=== PATIENT | female | born 1985 | race Hispanic/Latino ===

== ENCOUNTER 2021-12-05 16:03 | Outpatient (CLI) | payer BC | END 2021-12-05 16:04 | disposition home or self-care (01) | LOC: CSHLAB 16:03 | PROVIDERS: ATTEND Family Medicine | DX: Z01.812 Encounter for preprocedural laboratory examination (principal); Z20.822 Contact with and (suspected) exposure to COVID-19; Z40.03 Encounter for prophylactic removal of fallopian tube(s); Z92.25 Personal history of immunosuppression therapy | CPT/HCPCS: 84703; 85027; 86850; 86900; 86901; U0003; U0005 ==

== ENCOUNTER 2021-12-10 09:19 | Day surgery (SDC) | payer BC ==
[2021-12-05 11:50] VITALS: BMI 25.7
[2021-12-05 17:07] LABS: Hemoglobin 12.8 g/dL (12.0-15.5); Mean Corpuscular HGB CONC 33.4 g/dL (32.0-36.0); Mean Corpuscular Volume 89.9 fl (81.6-98.3); Mean Platelet Volume 10.2 fl (7.4-10.4); Platelet Count 282 10x3/uL (150-450); RBC Distribution Width 12.6 % (11.5-14.5); Red Blood Cell (RBC) Count 4.26 10x6/uL (3.90-5.03); White Blood Cell (WBC) Count 7.6 10x3/uL (3.5-10.5)
[2021-12-05 17:23] LABS: BHCG - Serum Negative (NEGATIVE); Pregs Control Background? CLEAR/WHITE (CLR/WHITE); Pregs Control Bar Appear? YES (CONTROL BAR)
[2021-12-06 15:48] LABS: SARS-CoV-2 PCR by NAA Not Detected (NotDetected)
[2021-12-10] MEDS ORDERED: Gabapentin 300 MG CAP ONE (10:10)
[2021-12-10] MEDS ORDERED: Famotidine/PF 20 mg/2ml Vial ONE (10:11)
[2021-12-10] MEDS ORDERED: CeleCOXIB 100 MG CAP ONE (10:11)
[2021-12-10] MEDS ORDERED: Lidocaine 1% MPF 2 ML VIAL ONE (10:11)
[2021-12-10] MEDS ORDERED: EPINEPHrine 1 MG/ML AMP ONE (11:02)
[2021-12-10] MEDS ORDERED: Bupivacaine PF 0.5% 30 ML VIAL ONE (11:02)
[2021-12-10] MEDS ORDERED: Ondansetron PF 4 MG/2 ML Vial ONE (11:05)
[2021-12-10] MEDS ORDERED: Midazolam HCl 2 mg/2 ml Vial ONE (11:07)
[2021-12-10] MEDS ORDERED: PROPOFOL 20 ML ONE (11:07)
[2021-12-10] MEDS ORDERED: Fentanyl 250 MCG/5 ML VIAL ONE (11:07)
[2021-12-10] MEDS ORDERED: Lidocaine 1% PF 5 ML VIAL ONE (11:08)
[2021-12-10] MEDS ORDERED: ceFAZolin 2 GM/Dextrose 50 ML IVPB ONE (11:08)
[2021-12-10] MEDS ORDERED: Rocuronium Bromide 10 MG/ML (10ML VIAL) ONE (11:08)
[2021-12-10] MEDS ORDERED: Ketorolac Tromethamine 30 MG/ML VIAL ONE (11:08)
[2021-12-10] MEDS ORDERED: Fentanyl 100 MCG/2 ML VIAL ONE (11:08)
[2021-12-10] MEDS ORDERED: Dexamethasone 20 MG/5 ML VIAL ONE (11:09)
== END 2021-12-10 14:15 | disposition home or self-care (01) ==
LOC: CSHSDC 09:19
PROVIDERS: ATTEND Obstetrics & Gynecology
PROC: 0UT74ZZ Resection of Bilateral Fallopian Tubes, Percutaneous Endoscopic Approach (ICD-10-PCS; principal; 2021-12-10)
DX: Z40.03 Encounter for prophylactic removal of fallopian tube(s) (principal); M06.9 Rheumatoid arthritis, unspecified; Z79.899 Other long term (current) drug therapy; Z20.822 Contact with and (suspected) exposure to COVID-19
CPT/HCPCS: 36415; 84703; 85027; 86850; 86900; 86901; 88302; J0171; J0690; J1100; J1885; J2250; J2405; J2704; J3010; S0020; S0028; U0003; U0005

== ENCOUNTER 2022-12-10 09:26 | Outpatient (CLI) | payer BC ==
[2022-12-10] MEDS ORDERED: Magnevist 469MG/ML 20 ML VIAL ONE (09:39)
== END 2022-12-10 09:27 | disposition home or self-care (01) ==
LOC: CSHMRI 09:26
PROVIDERS: ATTEND Neurological Surgery
DX: G91.9 Hydrocephalus, unspecified (principal); Z98.2 Presence of cerebrospinal fluid drainage device; R94.02 Abnormal brain scan
CPT/HCPCS: 70553; A9579